=== PATIENT | female | born 1955 | race Caucasian/White ===

== ENCOUNTER 2017-10-09 18:14 | Emergency (ER) | payer BC ==
[~2017-10-09] VITALS: Ht 152.4 cm; Wt 104.3 kg
[2017-10-09] MEDS ORDERED: VERAPAMIL E.R240 M1 PO (18:45)
[2017-10-09] MEDS ORDERED: MICARDIS 20MG T20 M1 PO (18:45)
[2017-10-09] MEDS ORDERED: GABAPENTIN 100100 MG PO (18:46)
[2017-10-09] MEDS ORDERED: OMEPRAZOLE 20 M20 MG PO (18:46)
[2017-10-09] MEDS ORDERED: PATADAY2.5 ML (18:46)
[2017-10-09] MEDS ORDERED: ALLEGRA ALLERG180 MG PO (18:46)
[2017-10-09] MEDS ORDERED: FLOVENT HFA 4444 MCG INH (18:46)
[2017-10-09] MEDS ORDERED: XANAX 0.25 MG0.25 MG PO (18:47)
[2017-10-09] MEDS ORDERED: CHLORTHALIDONE50 MG PO (18:47)
[2017-10-09] MEDS ORDERED: CITALOPRAM HBR40 MG PO (18:47)
[2017-10-09] MEDS ORDERED: TRAMADOL 50 MG50 MG PO (18:47)
[2017-10-09] MEDS ORDERED: ZANAFLEX2 MG PO (18:47)
[2017-10-09] MEDS ORDERED: OXYCONTIN10 M1 PO (18:47)
[2017-10-09] MEDS ORDERED: IBUPROFEN 200200 M1 PO (18:48)
[2017-10-09] MEDS ORDERED: TYLENOL325 MG PO (18:48)
[2017-10-09 19:20] LABS: INFLUENZA A ANTIGEN None Detected (None Detect)
[2017-10-09 19:26] LABS: ABSOLUTE MONOCYTES 0.8 thou/uL (0.0-1.2); ABSOLUTE NEUTROPHILS 5.1 thou/uL (1.6-8.1); BASOPHILS 0.4 %; EOSINOPHILS 0.1 %; HEMATOCRIT 40.2 % (37.0-47.0); LYMPHOCYTES 14.6 %; MCH 29.9 pg (26.0-34.0); MCHC 34.8 g/dL (28.0-37.0); MCV 85.8 fL (80.0-100.0); MONOCYTES 11.2 %; MPV 8.7 fl. (7.2-11.1); NUCLEATED RBCS 0 /100WBC; PLATELET COUNT* 206 thou/uL (150-400); POLYS 73.7 %; RBC 4.68 mil/uL (4.20-5.00); RDW-CV 14.2 % (10.5-14.5); WBC 6.9 thou/uL (4.0-11.0)
[2017-10-09 19:34] LABS: CALCIUM 8.6 mg/dL (8.5-10.1); CREATININE 0.9 mg/dL (0.6-1.3)
[2017-10-09 19:35] LABS: POTASSIUM 2.8 mmol/L (3.5-5.1)
[2017-10-09 19:38] LABS: ALBUMIN 3.5 g/dL (3.4-5.0); TOTAL BILIRUBIN 0.3 mg/dL (<0.1-1.0); TOTAL PROTEIN 7.1 g/dL (6.4-8.2)
[2017-10-09] MEDS ORDERED: POTASSIUM20 PO (20:17)
[2017-10-09] MEDS ORDERED: VENTOLIN HFA 1818 GM INH (20:17)
[2017-10-09 20:50] VITALS: BP 127/54
== END 2017-10-09 20:50 | disposition home or self-care (01) ==
LOC: M.ERS 18:14
PROVIDERS: Nurse Practitioner Family; Physician Assistant
DX: J10.1 Influenza due to other identified influenza virus with other respiratory manifestations (principal); Z98.890 Other specified postprocedural states